=== PATIENT | male | born 1980 | race Caucasian/White ===

== ENCOUNTER 2019-06-25 09:04 | Emergency (ER) | payer SELFPAY ==
[~2019-06-25] VITALS: Ht 175.3 cm; Wt 82.0 kg
[2019-06-25 10:00] VITALS: BP 146/98
[2019-06-25] MEDS ORDERED: ACETAMINOPHEN 325MG TABLET PO ONE (11:45)
[2019-06-25] MEDS ORDERED: TETANUS, DIPHTHERIA, PERTUSSIS VAC/PF 0.5ML (>7YR OLD) IM ONE (11:45)
[2019-06-25] MEDS ORDERED: LIDOCAINE HCL 1% 20ML VIAL (Pyxis) INJ INFIL ONE (12:30)
== END 2019-06-25 13:16 | disposition home or self-care (01) ==
LOC: ER 09:04
DX: S61.412A Laceration without foreign body of left hand, initial encounter (principal); W26.0XXA Contact with knife, initial encounter; Y93.89 Activity, other specified; Y92.89 Other specified places as the place of occurrence of the external cause; Z23 Encounter for immunization
CPT/HCPCS: 12001; 90471; 90715; 99283